=== PATIENT | male | born 1995 | race Caucasian/White ===

== ENCOUNTER 2016-05-09 02:06 | Observation (INO) ==
[2016-05-09] MEDS ORDERED: Ziprasidone injection 20 MG/ML VIAL IM ONE (02:25)
[2016-05-09] MEDS ORDERED: Haloperidol Lactate 5 MG/ML VIAL IM ONE (02:33)
--- NOTE | 2016-05-09 02:45 | Emergency Department Note ---
Disposition Clinical Impression: Drug abuse, Altered mental status Disposition: Admitted As Inpatient Condition: Good Psych HPI - General Chief Complaint: ED Psychiatric Symptoms Stated Complaint: Took drugs Time Seen by Provider: 05/09/16 02:22 Source: EMS, police, other Mode of arrival: EMS Limitations: altered mental status Nursing Notes Reviewed: Yes Vital Signs Reviewed: Yes - History of Present Illness HPI Narrative: 20-year-old male presents to the ER in police custody via EMS due to altered mental status and suspected drug ingestion. EMS was called for transport after the patient was found running down the street naked screaming. Officers responded and the patient was tased prior to arrival. Patient presents to the ER stating "I am God kaylynn". Patient is unable to provide details of tonight's events. Pt complaint: other (Reportedly took drugs) If medical clearance, reason: intoxication Onset (ago): unknown Duration: constant History of similar episodes: No (Unknown) Improves with: none Worsens with: none Context: other (Reportedly took drugs) Alleged intoxication: Yes Associated Psychiatric Symptoms: delusions Associated symptoms: Reports: other (Unable to assess) Traumatic symptoms: taser injury Treatments prior to arrival: physical restraints, other (Taser) Self harm or harm to others: other (Unable to assess) - Related Data Home Medications Medication Instructions Recorded Confirmed No Known Home Drugs 05/09/16 05/09/16 Allergies Allergy/AdvReac Type Severity Reaction Status Date / Time No Known Allergies Allergy Verified 05/09/16 02:32 Limitations: ROS unobtainable due to patients medical condition Past Medical History - Past Medical History Attestation: Yes The following information was validated with the patient. Source: unable to obtain Medical history: Reports: no medical history Surgical history: Reports: non-contributory - Social History Smoking Status: Unknown if ever smoked Alcohol use: Reports: unknown Drug use: Reports: methamphetamine, other Physical Exam - General Limitations: altered mental status General appearance: appears intoxicated - Head Head exam: atraumatic, normocephalic, normal inspection - Eye Eye exam: Present: normal appearance, EOMI, mydriasis - ENT ENT exam: normal exam - Neck Neck exam: Present: normal inspection - Chest Chest inspection: Present: normal inspection, symmetric chest wall rise - Respiratory Respiratory exam: Present: normal lung sounds bilaterally - Cardiovascular Cardiovascular exam: Present: normal rhythm, tachycardia, normal heart sounds - Abdominal Exam Abdominal exam: Present: soft, Non-Tender. Absent: tenderness - Extremities Exam Extremities exam: Present: normal inspection, full ROM - Expanded Upper Extremity Exam Shoulder exam: Present: normal inspection, full ROM Arm exam: Present: normal inspection, full ROM Elbow exam: Present: normal inspection, full ROM Forearm/Wrist exam: Present: normal inspection, full ROM Hand exam: Present: normal inspection, full ROM - Expanded Lower Extremity Exam Hip/Pelvis exam: Present: normal inspection, full ROM Upper leg exam: Present: normal inspection, full ROM Knee exam: Present: normal inspection, full ROM Lower leg exam: Present: normal inspection, full ROM Ankle exam: Present: normal inspection, full ROM Foot/toe exam: Present: normal inspection, full ROM - Neurological Exam Neurological exam: Present: alert, other (Unable to assess). Absent: oriented X3 - Psychiatric Psychiatric exam: Present: manic - Skin Skin exam: Present: warm, dry, intact, normal color Course Course Narrative: Patient seen and examined. Vital signs reviewed. He is currently manic screaming that "I am God" patient given 2 of Haldol IM and 50 of Benadryl IM. Patient requires restraints to prevent disruption of treatment and from harm to staff and himself. We will check some labs as well. Vital Signs Temperature 0 F L 05/09/16 02:15 Pulse Rate 0 05/09/16 02:15 Respiratory Rate 0 05/09/16 02:15 Blood Pressure 0/0 05/09/16 02:15 O2 Sat by Pulse Oximetry 0 L 05/09/16 02:15 Temperature 98.6 F 05/10/16 07:26 Pulse Rate 80 05/10/16 07:26 Respiratory Rate 14 05/10/16 07:26 Blood Pressure 122/70 05/10/16 07:26 O2 Sat by Pulse Oximetry 97 05/10/16 07:26 Oxygen Delivery Oxygen Delivery Room Air Psych - MDM Narrative Medical decision making narrative: 20-year-old male presents to the ER due to altered mental status. Patient was running down the street and was tased by police. He was psychotic here reporting that he was God. Patient's drug screen was positive for cocaine, amphetamines and marijuana. CT scan of the head unremarkable. Patient continues to remain altered here after all labs. We will admit to the hospital service for further management. - Lab Data Lab results reviewed: Yes I reviewed the patient's lab results. Result diagrams: 05/09/16 03:43 05/10/16 06:05 Lab Results 05/09/16 05/09/16 05/09/16 Range/Units 03:43 03:43 03:43 WBC 12.5 H (4.3-11.1) K/mcL RBC 5.58 H (4.19-5.50) M/mcL Hgb 15.7 (12.9-16.9) g/dL Hct 45.5 (37.5-50.1) % MCV 81.5 L (83.0-100.0) fL MCH 28.1 (28.0-33.3) pg MCHC 34.5 (31.6-35.5) g/dL RDW 12.9 (11.5-14.5) % Plt Count 192 (140-400) K/mcL MPV 10.4 (9.4-12.4) fL Immature Gran % 0.6 (0-4) % Seg Neutrophils % 87.8 % Lymphocytes % 5.6 % Monocytes % 5.8 % Eosinophils % 0.0 % Basophils % 0.2 % Neutrophils # 11.0 H (1.6-8.9) K/mcL Lymphocytes # 0.7 (0.6-4.6) K/mcL Monocytes # 0.7 (0.0-1.3) K/mcL Eosinophils # 0.0 (0.0-0.6) K/mcL Basophils # 0.0 (0.0-0.2) K/mcL Sodium 141 (136-145) mEq/L Potassium 3.0 L (3.5-4.5) mEq/L Chloride 105 (98-109) mEq/L Carbon Dioxide 23 (19-29) mEq/L BUN 11 (8-26) mg/dL Creatinine 1.16 (0.72-1.25) mg/dL Est GFR ( Amer) > 60 (> 60) Est GFR (Non-Af Amer) > 60 (> 60) BUN/Creatinine Ratio 9 (6-26) Glucose 106 H (70-99) mg/dL Calculated Osmolality 292 (280-300) Calcium 9.3 (8.6-10.8) mg/dL Total Bilirubin 0.9 (0.2-1.2) mg/dL Direct Bilirubin 0.4 (0.0-0.5) mg/dL Indirect Bilirubin 0.5 (0.0-1.2) mg/dL AST 27 (5-34) Units/L ALT 15 (0-55) Units/L Alkaline Phosphatase 64 (38-126) Units/L Creatine Kinase 591 H (30-200) Units/L Troponin I (0-0.03) ng/mL Serum Total Protein 7.9 (6.0-8.3) g/dL Albumin 4.4 (3.5-5.0) g/dL Globulin 3.5 (2.4-3.5) g/dL Albumin/Globulin Ratio 1.3 (1.1-2.2) TSH 1.399 (0.350-4.840) mcIU/mL Urine Color (Yellow) Urine Clarity (Clear) Urine pH (5.0-8.0) pH Units Ur Specific Mooers (1.010-1.025) Urine Protein (Neg-Trace) mg/dL Urine Glucose (UA) (Normal) mg/dL Urine Ketones (Negative) mg/dL Urine Blood (Negative) Urine Nitrite (Negative) Urine Bilirubin (Negative) Urine Urobilinogen (Normal) mg/dL Ur Leukocyte Esterase (Negative) Urine Microscopic RBC (0-3) per hpf Urine Microscopic WBC (0-3) per hpf Ur Squamous Epith Cells (None-Few) per lpf Urine Bacteria (None-Few) per hpf Salicylates < 5.0 L (15-30) mg/dL Urine Opiates Screen (Rvgvui=601) ng/mL Acetaminophen < 1.0 L (10-30) mcg/mL Ur Barbiturates Screen (Xwivvk=132) ng/mL Ur Phencyclidine Scrn (Cutoff=25) ng/mL Ur Amphetamines Screen (Bycugs=4575) ng/mL U Benzodiazepines Scrn (Fwjtlw=876) ng/mL Urine Cocaine Screen (Cutoff= 300) ng/mL U Marijuana (THC) Screen (Cutoff = 50) ng/mL Ethyl Alcohol < 10 (0-10) mg/dL 05/09/16 05/09/16 05/09/16 Range/Units 03:43 05:05 05:05 WBC (4.3-11.1) K/mcL RBC (4.19-5.50) M/mcL Hgb (12.9-16.9) g/dL Hct (37.5-50.1) % MCV (83.0-100.0) fL MCH (28.0-33.3) pg MCHC (31.6-35.5) g/dL RDW (11.5-14.5) % Plt Count (140-400) K/mcL MPV (9.4-12.4) fL Immature Gran % (0-4) % Seg Neutrophils % % Lymphocytes % % Monocytes % % Eosinophils % % Basophils % % Neutrophils # (1.6-8.9) K/mcL Lymphocytes # (0.6-4.6) K/mcL Monocytes # (0.0-1.3) K/mcL Eosinophils # (0.0-0.6) K/mcL Basophils # (0.0-0.2) K/mcL Sodium (136-145) mEq/L Potassium (3.5-4.5) mEq/L Chloride (98-109) mEq/L Carbon Dioxide (19-29) mEq/L BUN (8-26) mg/dL Creatinine (0.72-1.25) mg/dL Est GFR ( Amer) (> 60) Est GFR (Non-Af Amer) (> 60) BUN/Creatinine Ratio (6-26) Glucose (70-99) mg/dL Calculated Osmolality (280-300) Calcium (8.6-10.8) mg/dL Total Bilirubin (0.2-1.2) mg/dL Direct Bilirubin (0.0-0.5) mg/dL Indirect Bilirubin (0.0-1.2) mg/dL AST (5-34) Units/L ALT (0-55) Units/L Alkaline Phosphatase (38-126) Units/L Creatine Kinase (30-200) Units/L Troponin I 0.01 (0-0.03) ng/mL Serum Total Protein (6.0-8.3) g/dL Albumin (3.5-5.0) g/dL Globulin (2.4-3.5) g/dL Albumin/Globulin Ratio (1.1-2.2) TSH (0.350-4.840) mcIU/mL Urine Color Yellow (Yellow) Urine Clarity Clear (Clear) Urine pH 6.0 (5.0-8.0) pH Units Ur Specific Mooers > 1.030 H (1.010-1.025) Urine Protein 100 H (Neg-Trace) mg/dL Urine Glucose (UA) 250 H (Normal) mg/dL Urine Ketones 15 H (Negative) mg/dL Urine Blood Trace H (Negative) Urine Nitrite Negative (Negative) Urine Bilirubin Negative (Negative) Urine Urobilinogen Normal (Normal) mg/dL Ur Leukocyte Esterase Negative (Negative) Urine Microscopic RBC 5-15 H (0-3) per hpf Urine Microscopic WBC 5-15 H (0-3) per hpf Ur Squamous Epith Cells Many H (None-Few) per lpf Urine Bacteria None Seen (None-Few) per hpf Salicylates (15-30) mg/dL Urine Opiates Screen Negative (Rfwdqx=722) ng/mL Acetaminophen (10-30) mcg/mL Ur Barbiturates Screen Negative (Hurqpo=959) ng/mL Ur Phencyclidine Scrn Negative (Cutoff=25) ng/mL Ur Amphetamines Screen Positive H (Myjyoo=8364) ng/mL U Benzodiazepines Scrn Negative (Siizbd=609) ng/mL Urine Cocaine Screen Positive H (Cutoff= 300) ng/mL U Marijuana (THC) Screen Positive H (Cutoff = 50) ng/mL Ethyl Alcohol (0-10) mg/dL - Radiology Data Radiology results reviewed: Yes I reviewed the patient's radiology results. Head CT 05/09/16 03:52 IMPRESSION: No acute intracranial abnormality. D/ / Pete Champagne MD / Pete Champagne MD Interpreting Provider: Pete Champagne MD - EKG Data EKG attestation: Yes I reviewed and interpreted this EKG. EKG results narrative: EKG demonstrates sinus tachycardia with a rate of 129. Normal axis. AR interval 143 QRS duration [address] elevations. 0.5 mm depressions in lead V5 and V6 Psychiatric Medical Clearance - Medical Clearance Checklist Medical History: No Social History Section defined Current Vitals: Last Vital Signs Temp 98.6 F 05/10/16 07:26 Pulse 80 05/10/16 07:26 Resp 14 05/10/16 07:26 BP 122/70 05/10/16 07:26 Pulse Ox 97 05/10/16 07:26 Abnormal Labs: Abnormal lab results WBC 12.5 K/mcL (4.3-11.1) H 05/09/16 03:43 RBC 5.58 M/mcL (4.19-5.50) H 05/09/16 03:43 MCV 81.5 fL (83.0-100.0) L 05/09/16 03:43 Neutrophils # 11.0 K/mcL (1.6-8.9) H 05/09/16 03:43 BUN 7 mg/dL (8-26) L 05/10/16 06:05 Calcium 8.4 mg/dL (8.6-10.8) L 05/10/16 06:05 Creatine Kinase 591 Units/L (30-200) H 05/09/16 03:43 Ur Specific [place] > 1.030 (1.010-1.025) H 05/09/16 05:05 Urine Protein 100 mg/dL (Neg-Trace) H 05/09/16 05:05 Urine Glucose (UA) 250 mg/dL (Normal) H 05/09/16 05:05 Urine Ketones 15 mg/dL (Negative) H 05/09/16 05:05 Urine Blood Trace (Negative) H 05/09/16 05:05 Urine Microscopic RBC 5-15 per hpf (0-3) H 05/09/16 05:05 Urine Microscopic WBC 5-15 per hpf (0-3) H 05/09/16 05:05 Ur Squamous Epith Cells Many per lpf (None-Few) H 05/09/16 05:05 Salicylates < 5.0 mg/dL (15-30) L 05/09/16 03:43 Acetaminophen < 1.0 mcg/mL (10-30) L 05/09/16 03:43 Ur Amphetamines Screen Positive ng/mL (Qqkoch=8288) H 05/09/16 05:05 Urine Cocaine Screen Positive ng/mL (Cutoff= 300) H 05/09/16 05:05 U Marijuana (THC) Screen Positive ng/mL (Cutoff = 50) H 05/09/16 05:05 Critical Care Time Critical Care Time: Yes Total Critical Care Time: 50 Attestation: Critical care performed: Time is exclusive of separately billable procedures. Time includes: direct patient care, patient reassessment, coordination of patient care, interpretation of data (laboratory data, radiology data, and respiratory data), review of patient's medical records, medical consultation and documentation of patient care. Procedures included in critical care time: Procedures excluded from critical care time: Mekhi - Mekhi Situation: Demographics, MOA Background: Presenting Complaint, Relevant PMH, Meds, & Allergies Assessment: Course and respsone to treatment, Exam Concerns, Pertinant Lab Results Recommendation: Barrier(s) to disposition, Recommendation based on pending studies, treatments, or consults Mekhi Report Given to: Dr. Clint Gaming Repor Time: 07:32 Attestation Statement - Attestation Attestation: IManjinder MD, personally performed a history and physical exam of the patient and discussed their management with the resident. I reviewed the resident's note and agree with the documented findings, medical decision making , and plan of care. 20-year-old male presented to the emergency department by ambulance for altered mental status which appears to be drug related. Patient was found running down the street naked and screaming. On arrival here the patient is in handcuffs and is yelling and screaming that he is God. Patient is uncooperative. Patient had to be restrained for protection. He received IM Haldol and Benadryl and also IM Geodon for his agitation. Vital signs of remained stable throughout his stay in the emergency department. He is currently sedated from the medications. On examination patient is a well-developed well-nourished young male. No obvious traumatic injuries other than taser barbs embedded in his anterior chest wall. There is no cyanosis or diaphoresis. Patient has multiple tattoos. Breath sounds are clear and equal bilaterally. Heart regular and tachycardic. Abdomen soft with normal bowel sounds. Labs reviewed. Head CT negative. We will consult the hospitalist for admission for altered mental status and for later psychiatric evaluation.
[2016-05-09 03:50] LABS: Basophils % 0.2 %; Hematocrit 45.5 % (37.5-50.1); Hemoglobin 15.7 g/dL (12.9-16.9); Immature Granulocytes % 0.6 % (0-4); Lymphocytes # 0.7 K/mcL (0.6-4.6); Lymphocytes % 5.6 %; Mean Corpuscular HGB Conc 34.5 g/dL (31.6-35.5); Mean Corpuscular Hemoglobin 28.1 pg (28.0-33.3); Mean Corpuscular Volume 81.5 fL (83.0-100.0); Mean Platelet Volume 10.4 fL (9.4-12.4); Monocytes # 0.7 K/mcL (0.0-1.3); Monocytes % 5.8 %; Platelet Count 192 K/mcL (140-400); Red Blood Count 5.58 M/mcL (4.19-5.50); Red Cell Distribution Width 12.9 % (11.5-14.5); Segmented Neutrophils % 87.8 %
[2016-05-09 04:05] LABS: Acetaminophen < 1.0 mcg/mL (10-30); Alanine Aminotransferase 15 Units/L (0-55); Albumin 4.4 g/dL (3.5-5.0); Albumin/Globulin Ratio 1.3 (1.1-2.2); Alkaline Phosphatase 64 Units/L (38-126); Aspartate Amino Transferase 27 Units/L (5-34); BUN/Creatinine Ratio 9 (6-26); Bilirubin,Direct 0.4 mg/dL (0.0-0.5); Bilirubin,Indirect 0.5 mg/dL (0.0-1.2); Bilirubin,Total 0.9 mg/dL (0.2-1.2); Blood Urea Nitrogen 11 mg/dL (8-26); Calcium 9.3 mg/dL (8.6-10.8); Carbon Dioxide 23 mEq/L (19-29); Chloride 105 mEq/L (98-109); Ethanol < 10 mg/dL (0-10); Globulin 3.5 g/dL (2.4-3.5); Glucose 106 mg/dL (70-99); Osmolality,Calculated 292 (280-300); Salicylate < 5.0 mg/dL (15-30); Sodium 141 mEq/L (136-145); Total Protein 7.9 g/dL (6.0-8.3); eGFR For African Americans > 60 (> 60); eGFR For Non-African Americans > 60 (> 60)
[2016-05-09 04:25] LABS: Thyroid Stimulating Hormone 1.399 mcIU/mL (0.350-4.840)
[2016-05-09 05:30] LABS: Bilirubin,Urine Negative (Negative); Blood,Urine Trace (Negative); Clarity,Urine Clear (Clear); Color,Urine Yellow (Yellow); Glucose,Urine (UA) 250 mg/dL (Normal); Ketones,Urine 15 mg/dL (Negative); Leukocyte Esterase,Urine Negative (Negative); Nitrite,Urine Negative (Negative); Protein,Urine 100 mg/dL (Neg-Trace); Specific Gravity,Urine > 1.030 (1.010-1.025); Urobilinogen,Urine Normal (Normal)
[2016-05-09 05:31] LABS: Bacteria,Urine None Seen per hpf (None-Few); Squamous Epithelial Cell,Urine Many per lpf (None-Few)
[2016-05-09 05:36] LABS: Amphetamine Screen,Urine Positive ng/mL (Cutoff=1000); Barbiturate Screen,Urine Negative ng/mL (Cutoff=200); Benzodiazepines Screen,Urine Negative ng/mL (Cutoff=200); Cannabinoid Screen,Urine Positive ng/mL (Cutoff = 50); Cocaine Screen,Urine Positive ng/mL (Cutoff= 300); Opiate Screen,Urine Negative ng/mL (Cutoff=300); Phencyclidine Screen,Urine Negative ng/mL (Cutoff=25)
[2016-05-09] MEDS ORDERED: 0.9 % Sodium Chloride 1,000 ML IVC ONE (06:00)
[2016-05-09] MEDS ORDERED: D5% in 0.9% NACL w KCl 20 MEQ/1,000 ML MLS IVC ONE (08:15)
[2016-05-09] MEDS ORDERED: Naloxone 0.4 MG/ML INJ IVP PRN (08:49)
[2016-05-09] MEDS ORDERED: Acetaminophen 325 MG TABLET PO PRN (08:49)
--- NOTE | 2016-05-09 08:58 | Internal Med History&Physical ---
Date of Encounter: 05/09/16 Time of Encounter: 08:40 Assessment and Plan (1) Altered mental status Current visit: Yes Status: Acute Likely from drug abuse. Currently somnolent due to use of multiple medications to calm him down. He seems to be improving now. Will consult psychiatric for evaluation regarding psychosis. Patient also has an elevation in CK. Will hydrate intravenously. Qualifiers: Altered mental status type: delirium Qualified Code(s): R41.0 - Disorientation, unspecified (2) Drug abuse Current visit: Yes Status: Acute Urine drug screen positive for amphetamines cocaine and marijuana. Will consult group social worker to help with finding resources for the patient. (3) Hypokalemia Current visit: Yes Status: Acute Potassium is 3. We will replace IV and orally. Internal Medicine - H&P: HPI Chief complaint: Episode of psychosis Admitted From: Emergency Dept Plans for Post Hospital Care: Home History of present illness: Mr. Hicks is a 20 year old male with no significant past medical history was brought in by EMS after having an episode of psychosis that required involvement of Police officers. The patient does not recollect any of this and so the history has been obtained from reviewing previous records. Apparently the patient was running naked on the street and was tased before being brought in. Denies any pain. His very somnolent but awakens to answer questions and then falls back to sleep. In the ER, he was very agitated and required multiple drugs to calm him down. Past Med Surg Social Fam HX - Past Medical History Medical history: no medical history - Past Surgical History Surgical History: non-contributory - Social History Smoking Status: Unknown if ever smoked Alcohol use: unknown Drug use: methamphetamine, other Internal Medicine - H&P: Meds Allergies No Known Allergies Allergy (Verified 05/09/16 02:32) ROS unobtainable: due to mental status (As patient is very somnolent at this time.) All Systems PM: A 10-system review of systems was performed and is negative for pertinent findings except as documented above in the HPI. - Constitutional Vitals: Temp Pulse Resp BP Pulse Ox 98.4 F 68 18 135/77 98 05/09/16 04:15 05/09/16 08:02 05/09/16 08:42 05/09/16 08:42 05/09/16 08:02 Exam: Somnolent but awakes to answer some questions. - Neck Neck exam general surgery: Present: supple, trachea midline. Absent: lymphadenopathy - Respiratory Respiratory exam: Present: CTAB. Absent: accessory muscle use, rales, rhonchi, wheezes - Cardiovascular Cardiovascular exam: Present: RRR, +S1, +S2. Absent: diastolic murmur, gallop, rubs, systolic murmur - GI/Abdominal GI/Abdominal exam: Present: normal bowel sounds, soft, no peritoneal signs. Absent: distended, tenderness - Extremities Exam Extremities exam: Present: warm, radial pulses palpable and symetrical. Absent : calf tenderness, cyanotic, pedal edema - Neurological Exam Neurological exam: Absent: facial droop, speech deficit - Skin Skin exam: Present: dry, intact Additional comments: Ecchymosis on chest wall Internal Med - H&P Results - Labs CBC & Chem 7: 05/09/16 03:43 05/09/16 03:43 - Attending Attestation This document has been at least partially created by [employer] voice recognition technology by Dr. Jaramillo. Errors in grammar, wording or other phrases may exist. If errors are found after the documentation is signed, they will be addressed individually in the addendum section of this document when appropriate.
--- NOTE | 2016-05-09 16:28 | Electrocardiograph Report ---
[address] [place], [place] [address] Test Date: 2016-05-09 Pat Name: Edd Hicks Department: 104 Room: 3B21 Gender: M [employer] Supervisor: : [id number] Requested By: Sukhdev Ordonez Order Number: [id number] Reading MD: Gene Vicente MD Measurements Intervals [place] Rate: 129 P: 70 HI: 143 QRS: 78 QRSD: 98 T: 74 QT: 378 QTc: 454 Interpretive Statements SINUS TACHYCARDIA MODERATE T-WAVE ABNORMALITY, CONSIDER LATERAL ISCHEMIA BASELINE ARTIFACT Electronically Signed On 05-09-2016 16:26:50 EDT by Gene Vicente MD
[2016-05-10 03:55] VITALS: BP 122/70
[2016-05-10 07:08] LABS: BUN/Creatinine Ratio 7 (6-26); Blood Urea Nitrogen 7 mg/dL (8-26); Carbon Dioxide 24 mEq/L (19-29); Chloride 106 mEq/L (98-109); Potassium 3.5 mEq/L (3.5-4.5); Sodium 139 mEq/L (136-145); eGFR For African Americans > 60 (> 60)
[2016-05-10 07:09] LABS: Calcium 8.4 mg/dL (8.6-10.8); Glucose 81 mg/dL (70-99); Osmolality,Calculated 285 (280-300); eGFR For Non-African Americans > 60 (> 60)
--- NOTE | 2016-05-10 08:25 | Consult Note ---
Date of Encounter: 05/09/16 Time of Encounter: 15:30 Assessment & Recommendation (1) Drug-induced psychotic disorder with hallucinations Current visit: Yes Status: Acute Assessment & Recommendation: 1. Continue medical stabilization 2. To control agitation small doses of Haldol or Geodon can be used as needed 3. Referral to drug rehabilitation services, resources can be obtained from director social service 4. There is no acute psychiatric condition that requires inpatient hospitalization since its drug-induced. Thank you for consultation History of Present Illness Patient: new to practice Requesting Physician: Izabella Walsh Reason for consult: psychosis,drug induced History of present illness: Mr. Hicks is a 20 year old male admitted to the medical floor for evaluation treatments of change in mental status with agitation hallucination and psychosis. Reports and records indicates the patient went on a binge using marijuana methamphetamine and cocaine for 2 weeks. He was running naked in public and police tase him and took him to the hospital. He tox screen was positive for amphetamine, cocaine and marijuana. Patient was very agitated and combative and was medicated and slept for several hours. Psychiatric consultation was requested to evaluate psychosis. Patient had no previous history of mental illness or treatments or drug rehabilitation. He is unemployed and states that he was using drugs to get high. He denies any use of alcohol or DUIs. He denies any previous suicide attempts or overdose. He did not endorse any symptoms of depression or anxiety. He is not aware of any history of mental illness in the family. When I went to see him he was deeply asleep and needed an effort to wake him up but he was sedated and groggy. When I ask him about circumstances of his admission he could not remember any events that happened prior to his admission and he told me he woke up in the hospital. He was not sure of the hospital or the day of the week,. CC: Izabella Walsh Past Med Surg Social Fam HX - Past Medical History Medical history: no medical history - Past Psychiatric History Psychiatric history: Reports: no psych history - Past Surgical History Surgical History: non-contributory - Social History Smoking Status: Unknown if ever smoked Alcohol use: unknown Drug use: cocaine, marijuana, methamphetamine, other Medications & Allergies No Known Home Drugs 05/09/16 [History] Allergies No Known Allergies Allergy (Verified 05/09/16 02:32) Review of Systems Psychiatric: Reports: visual hallucinations, confusion Mental Status Exam Patient orientation: Yes Person Level of alertness: Sedated Patient appearance: Unkempt, Disheveled Behavior: other (Lethargic) Psychomotor activity: Normal Eye contact: Fleeting Contact Mood description: Euthymic/stable, Other Affect description: congruent with mood, full range Speech pattern: Normal rate, Normal rhythm, Normal tone, Slurred Speech volume: Normal Thought process: Linear, Goal Oriented Thought content: No Suicidal ideation, No Homicidal ideation, No Overt delusions Perceptual disturbances: No Auditory hallucinations, Yes Visual hallucinations Attention span: Unable to Focus Memory description: Immediate Impaired, Recent Impaired Patient reliability: Not Reliable Historian Intelligence estimate: Average Judgment: Limited Insight: Partial Results - Vital Signs Vital signs: Temp Pulse Resp BP Pulse Ox 98.6 F 80 14 122/70 97 05/10/16 07:26 05/10/16 07:26 05/10/16 07:26 05/10/16 07:26 05/10/16 07:26 - Labs Labs: Laboratory Last Values WBC 12.5 K/mcL (4.3-11.1) H 05/09/16 03:43 RBC 5.58 M/mcL (4.19-5.50) H 05/09/16 03:43 Hgb 15.7 g/dL (12.9-16.9) 05/09/16 03:43 Hct 45.5 % (37.5-50.1) 05/09/16 03:43 MCV 81.5 fL (83.0-100.0) L 05/09/16 03:43 MCH 28.1 pg (28.0-33.3) 05/09/16 03:43 MCHC 34.5 g/dL (31.6-35.5) 05/09/16 03:43 RDW 12.9 % (11.5-14.5) 05/09/16 03:43 Plt Count 192 K/mcL (140-400) 05/09/16 03:43 MPV 10.4 fL (9.4-12.4) 05/09/16 03:43 Immature Gran % 0.6 % (0-4) 05/09/16 03:43 Seg Neutrophils % 87.8 % 05/09/16 03:43 Lymphocytes % 5.6 % 05/09/16 03:43 Monocytes % 5.8 % 05/09/16 03:43 Eosinophils % 0.0 % 05/09/16 03:43 Basophils % 0.2 % 05/09/16 03:43 Neutrophils # 11.0 K/mcL (1.6-8.9) H 05/09/16 03:43 Lymphocytes # 0.7 K/mcL (0.6-4.6) 05/09/16 03:43 Monocytes # 0.7 K/mcL (0.0-1.3) 05/09/16 03:43 Eosinophils # 0.0 K/mcL (0.0-0.6) 05/09/16 03:43 Basophils # 0.0 K/mcL (0.0-0.2) 05/09/16 03:43 Sodium 139 mEq/L (136-145) 05/10/16 06:05 Potassium 3.5 mEq/L (3.5-4.5) 05/10/16 06:05 Chloride 106 mEq/L (98-109) 05/10/16 06:05 Carbon Dioxide 24 mEq/L (19-29) 05/10/16 06:05 BUN 7 mg/dL (8-26) L 05/10/16 06:05 Creatinine 1.01 mg/dL (0.72-1.25) 05/10/16 06:05 Est GFR ( Amer) > 60 (> 60) 05/10/16 06:05 Est GFR (Non-Af Amer) > 60 (> 60) 05/10/16 06:05 BUN/Creatinine Ratio 7 (6-26) 05/10/16 06:05 Glucose 81 mg/dL (70-99) 05/10/16 06:05 Calculated Osmolality 285 (280-300) 05/10/16 06:05 Calcium 8.4 mg/dL (8.6-10.8) L 05/10/16 06:05 Total Bilirubin 0.9 mg/dL (0.2-1.2) 05/09/16 03:43 Direct Bilirubin 0.4 mg/dL (0.0-0.5) 05/09/16 03:43 Indirect Bilirubin 0.5 mg/dL (0.0-1.2) 05/09/16 03:43 AST 27 Units/L (5-34) 05/09/16 03:43 ALT 15 Units/L (0-55) 05/09/16 03:43 Alkaline Phosphatase 64 Units/L (38-126) 05/09/16 03:43 Creatine Kinase 591 Units/L (30-200) H 05/09/16 03:43 Troponin I 0.01 ng/mL (0-0.03) 05/09/16 03:43 Serum Total Protein 7.9 g/dL (6.0-8.3) 05/09/16 03:43 Albumin 4.4 g/dL (3.5-5.0) 05/09/16 03:43 Globulin 3.5 g/dL (2.4-3.5) 05/09/16 03:43 Albumin/Globulin Ratio 1.3 (1.1-2.2) 05/09/16 03:43 TSH 1.399 mcIU/mL (0.350-4.840) 05/09/16 03:43 Urine Color Yellow (Yellow) 05/09/16 05:05 Urine Clarity Clear (Clear) 05/09/16 05:05 Urine pH 6.0 pH Units (5.0-8.0) 05/09/16 05:05 Ur Specific [place] > 1.030 (1.010-1.025) H 05/09/16 05:05 Urine Protein 100 mg/dL (Neg-Trace) H 05/09/16 05:05 Urine Glucose (UA) 250 mg/dL (Normal) H 05/09/16 05:05 Urine Ketones 15 mg/dL (Negative) H 05/09/16 05:05 Urine Blood Trace (Negative) H 05/09/16 05:05 Urine Nitrite Negative (Negative) 05/09/16 05:05 Urine Bilirubin Negative (Negative) 05/09/16 05:05 Urine Urobilinogen Normal mg/dL (Normal) 05/09/16 05:05 Ur Leukocyte Esterase Negative (Negative) 05/09/16 05:05 Urine Microscopic RBC 5-15 per hpf (0-3) H 05/09/16 05:05 Urine Microscopic WBC 5-15 per hpf (0-3) H 05/09/16 05:05 Ur Squamous Epith Cells Many per lpf (None-Few) H 05/09/16 05:05 Urine Bacteria None Seen per hpf (None-Few) 05/09/16 05:05 Salicylates < 5.0 mg/dL (15-30) L 05/09/16 03:43 Urine Opiates Screen Negative ng/mL ([place]=802) 05/09/16 05:05 Acetaminophen < 1.0 mcg/mL (10-30) L 05/09/16 03:43 Ur Barbiturates Screen Negative ng/mL (Nrtdlw=505) 05/09/16 05:05 Ur Phencyclidine Scrn Negative ng/mL (Cutoff=25) 05/09/16 05:05 Ur Amphetamines Screen Positive ng/mL (Ajudne=7447) H 05/09/16 05:05 U Benzodiazepines Scrn Negative ng/mL (Jrvouo=461) 05/09/16 05:05 Urine Cocaine Screen Positive ng/mL (Cutoff= 300) H 05/09/16 05:05 U Marijuana (THC) Screen Positive ng/mL (Cutoff = 50) H 05/09/16 05:05 Ethyl Alcohol < 10 mg/dL (0-10) 05/09/16 03:43 Consult Discharge Plan - Plan Referrals: NO,PCP [Primary Care Provider] -
--- NOTE | 2016-05-10 10:49 | Discharge Summary ---
Date of Encounter: 05/10/16 Time of Encounter: 09:45 - Discharge Diagnosis (1) Drug-induced psychotic disorder with hallucinations Priority: Primary Status: Resolved Comments: Patient alert and oriented 3 on day of discharge. He denies suicidal or homicidal ideations. (2) Altered mental status Priority: Primary Status: Resolved Qualifiers: Altered mental status type: delirium Qualified Code(s): R41.0 - Disorientation, unspecified (3) Drug abuse Priority: Primary Status: Acute Comments: Both the patient and his mother state that prior to a couple weeks ago when he started to have rough times at home, he had not used drugs prior to that. Tox screen positive for amphetamines, cocaine, and marijuana. Patient given resources per web content & social media manager. Follow-up outpatient (4) Depressed Priority: Primary Status: Acute Comments: Patient stating over the past couple weeks that his girlfriend has broken up with him, he said trouble finding a job, his car broke down, and he has been staying several different houses with friends. He denies suicidal ideations. Recommend follow-up closely outpatient. (5) Hypokalemia Priority: Primary Status: Resolved - Discharge Medications Home Medications: No Known Home Drugs 05/09/16 [History] Allergies/Adverse Reactions: Allergies No Known Allergies Allergy (Verified 05/09/16 02:32) Date of admission: 05/09/16 08:50 Primary care physician: PCP NO Consults: 05/10/16 10:14 Consult to [employer] [CONS] Routine Reason for SW Consult: Rehab resources Discharging clinician: Izabella Gregg Anticipated date of discharge: 05/10/16 - Patient Status Disposition: Home, Self-Care Condition: Good Functional capacity at discharge: independent ambulation Overall status at discharge: patient is back to baseline - Discharge Instructions Follow Up With: Bang Gil MD [Partnered Physician] - Additional Instructions: Follow-up with primary care provider within one to 2 weeks - Diet and Activity Activity: increase activity as tolerated Diet: regular diet Hospital course: Mr. Hicks is a 20 year old male with no significant past medical history. He was brought to the emergency department per EMS after he was found running naked in the street and was tasered by police then brought to the emergency department. Patient does not recollect any of this and history was obtained per EMS. In the emergency department, patient was very agitated and received IM Benadryl, IM Haldol, and IM Geodon to calm him. Head CT negative. Patient was admitted to the hospitalist service for further evaluation and management. Tox screen positive for amphetamines, cocaine, and marijuana. Mild hypokalemia resolved. Patient was admitted and observed over the course of one night. On day of discharge, patient was alert and oriented 3 and did not recall what happened on the night prior. He states that over the past 2 weeks, his girlfriend had broken up with him, he was having trouble finding a job, his car had broken down, and he had been bouncing from house to house staying with friends and at this point is when he started doing drugs. He denied drug use prior to this 2 week timeframe. He is also endorsing depression due to these multiple stressors which she states is also new. He denies suicidal ideation throughout this admission and prior to this admission. He also denied homicidal ideation. He was seen and evaluated by psychiatry who recommended referral for drug rehabilitation services. He was seen by web content & social media manager who gave him resources. He was discharged home in stable condition with close outpatient follow-up recommended. Of note, given the short timeframe, antidepression medication not initiated at this time. We will defer to his primary care provider. ITS Impressions Head CT 05/09/16 03:52 IMPRESSION: No acute intracranial abnormality. D/ / Pete Champagne MD / Pete Champagne MD Interpreting Provider: Pete Champagne MD - Time Spent with Patient Total time spent providing and/or coordinating discharge services: - Constitutional Vitals: Temp Pulse Resp BP Pulse Ox 98.6 F 80 14 122/70 97 05/10/16 07:26 05/10/16 07:26 05/10/16 07:26 05/10/16 07:26 05/10/16 07:26 General appearance: Present: A&O X 3, pleasant, no acute distress, answers questions appropriately - Head Head exam: Present: atraumatic, normocephalic - Eye Eye exam: Present: PERRL, conjuntiva pink, sclera anicteric Pupils: Present: PERRL - Neck Neck exam general surgery: Present: supple, trachea midline. Absent: lymphadenopathy - Respiratory Respiratory exam: Present: CTAB. Absent: accessory muscle use, rales, respiratory distress, rhonchi, wheezes - Cardiovascular Cardiovascular exam: Present: RRR, +S1, +S2. Absent: diastolic murmur, gallop, rubs, systolic murmur - GI/Abdominal GI/Abdominal exam: Present: normal bowel sounds, soft, no peritoneal signs. Absent: distended, tenderness - Extremities Exam Extremities exam: Present: warm, radial pulses palpable and symetrical. Absent : calf tenderness, cyanotic, pedal edema - Neurological Exam Neurological exam: Present: alert, CN II-XII intact, normal gait, oriented X3, no focal deficits, strengths equal and symetr throughout. Absent: pronater drift, facial droop, speech deficit - Psychiatric Psychiatric exam: Present: depressed. Absent: suicidal ideation - Skin Skin exam: Present: dry, intact, normal color, warm
== END 2016-05-10 12:20 | disposition home or self-care (01) ==
LOC: 3BNU 02:06 → EMEROO 02:06 → SUATTDRO 08:50 → 3BNU 09:17
PROVIDERS: ADMIT Internal Medicine; ATTEND Nurse Practitioner Family